=== PATIENT | male | born 1955 | race African-American/Black ===

== ENCOUNTER 2021-10-25 15:18 | Emergency (ER) | payer MEDICARE ==
[2021-10-25 15:33] VITALS: BP 139/61; RESP 20; TEMP 99.6
--- NOTE | 2021-10-25 15:45 | ED ---
General Adult HPI - General Chief complaint: Recheck/Abnormal Lab/Rx Stated complaint: Medication Refill Time Seen by Provider: 10/25/21 15:34 Source: patient, RN notes reviewed Mode of arrival: ambulatory Limitations: no limitations - History of Present Illness Initial comments: 66-year-old male history of hypertension, CHF presenting for medication refill. Patient has no complaints. He has been out of his medications for approximately one week. The 2 medications that he requires are amlodipine and lisinopril. He does take multiple other medications but has a one-month supply of these. He contacted his primary care physician who is in [place] and they indicated that he needed to be seen before he could have refills. He is planning on esta blishing with a primary care in this area. He has no other complaints, he is requesting a refill of his lisinopril and amlodipine. - Related Data Previous Rx's Medication Instructions Recorded Cyclobenzaprine [Flexeril] 5 mg PO HS #3 tab 10/25/21 amLODIPine [Norvasc] 5 mg PO DAILY #30 tab 10/25/21 lisinopriL [Zestril] 40 mg PO DAILY #30 tablet 10/25/21 Allergies Allergy/AdvReac Type Severity Reaction Status Date / Time morphine Allergy Unknown Verified 10/25/21 15:28 Review of Systems ROS Statement: Those systems with pertinent positive or pertinent negative responses have been documented in the HPI. ROS Other: All systems not noted in ROS Statement are negative. Past Medical History Past Medical History: Hypertension Additional Past Medical History / Comment(s): hypoglycemia, hepatitis C, History of Any Multi-Drug Resistant Organisms: None Reported Past Surgical History: Bariatric Surgery Past Psychological History: No Psychological Hx Reported Smoking Status: Former smoker Past Alcohol Use History: Occasional Past Drug Use History: None Reported General Exam Limitations: no limitations General appearance: alert, in no apparent distress Head exam: Present: atraumatic, normocephalic Eye exam: Present: normal appearance, PERRL ENT exam: Present: normal exam Neck exam: Present: normal inspection. Absent: tenderness, meningismus Respiratory exam: Present: normal lung sounds bilaterally. Absent: respiratory distress, wheezes Cardiovascular Exam: Present: regular rate, normal rhythm GI/Abdominal exam: Present: soft. Absent: distended, tenderness, guarding Extremities exam: Present: normal inspection, normal capillary refill. Absent: pedal edema Neurological exam: Present: alert, oriented X3, CN II-XII intact. Absent: motor sensory deficit Psychiatric exam: Present: normal affect, normal mood Skin exam: Present: warm, dry, intact. Absent: cyanosis, diaphoretic Course Vital Signs 10/25/21 15:28 Temperature 99.6 F Pulse Rate 92 Respiratory 20 Rate Blood Pressure 139/61 O2 Sat by Pulse 99 Oximetry Medical Decision Making - Medical Decision Making 66-year-old male fell complaints, stable vitals, refilled his medications for 30 days supply including amlodipine and lisinopril. Additionally the patient is referred to multiple primary care physicians in the area helping him establish Disposition Clinical Impression: Encounter for medication refill Disposition: HOME SELF-CARE Condition: Good Instructions (If sedation given, give patient instructions): Medicine Refill (ED) Prescriptions: Cyclobenzaprine [Flexeril] 5 mg PO HS #3 tab amLODIPine [Norvasc] 5 mg PO DAILY #30 tab lisinopriL [Zestril] 40 mg PO DAILY #30 tablet Is patient prescribed a controlled substance at d/c from ED?: No Referrals: None,Stated [Primary Care Provider] - 1-2 days Pal Arriaga MD [STAFF PHYSICIAN] - 1-2 days Yara Doyle MD [REFERRING] - 1-2 days Amado Bradford [STAFF PHYSICIAN] - 1-2 days Time of Disposition: 15:42
[2021-10-25 15:56] VITALS: PULSE 74
== END 2021-10-25 16:35 | disposition home or self-care (01) ==
LOC: EC 15:18
DX: Z88.5 Allergy status to narcotic agent (principal); I10 Essential (primary) hypertension; Z76.0 Encounter for issue of repeat prescription; Z87.891 Personal history of nicotine dependence
CPT/HCPCS: 99281

== ENCOUNTER → 2022-01-04 | Outpatient (CLI) | payer MEDICARE ==
[2022-01-04 20:09] LABS: HCT 28.7 % (39.6-50.0); HGB 8.9 g/dL (13.0-17.0); Mean Platelet Volume 11.8 fL (9.5-12.2); NRBC Per 100 WBC 0 /100 WBCS (0.0-0.0); Platelet Count 203 X 10*3/uL (140-440); RDW 15.8 % (11.5-14.5); WBC 4.54 X 10*3/uL (4.50-10.00)
[2022-01-04 20:38] LABS: African American GFR (CKD) 25.2 (60.0-200.0); BUN/Creat Ratio 13.41 Ratio (12.00-20.00); Blood Urea Nitrogen 38.9 mg/dL (9.0-27.0); Calcium 8.9 mg/dL (8.7-10.3); Carbon Dioxide 20.5 mmol/L (20.0-27.5); Chloride 100 mmol/L (96-109); Chol/HDL Ratio 1.64 Ratio; Glucose 102 mg/dL (70-110); LDL Cholesterol,Calculated 49.9 mg/dL (0.0-131.0); Non-African American GFR(CKD) 21.7 (60.0-200.0); Potassium 4.3 mmol/L (3.5-5.5); Sodium 135 mmol/L (135-145); VLDL Calculation 14.08 mg/dL (5.00-40.00)
== END | disposition home or self-care (01) ==
LOC: LABWHC1 11:44
PROVIDERS: ATTEND Internal Medicine Cardiovascular Disease
DX: I50.9 Heart failure, unspecified (principal); E78.2 Mixed hyperlipidemia
CPT/HCPCS: 36415; 80048; 80061; 83880; 84443; 85027

== ENCOUNTER 2022-05-03 15:14 | Inpatient (IN) | payer MEDICARE ==
[2022-05-03 17:43] LABS: Basophils % (A) 1 %; Eosinophils # (A) 0.1 k/uL (0-0.7); Eosinophils % (A) 2 %; HCT 37.4 % (39.0-53.0); HGB 11.4 gm/dL (13.0-17.5); Lymphocytes # (A) 1.6 k/uL (1.0-4.8); Lymphocytes % (A) 33 %; MCH 27.5 pg (25.0-35.0); MCHC 30.4 g/dL (31.0-37.0); MCV 90.4 fL (80.0-100.0); Mean Platelet Volume 9.6; Monocytes # (A) 0.3 k/uL (0-1.0); Monocytes % (A) 5 %; Neutrophils # (A) 2.8 k/uL (1.3-7.7); Neutrophils % (A) 58 %; Platelet Count 197 k/uL (150-450); RBC 4.14 m/uL (4.30-5.90); RDW 15.9 % (11.5-15.5); WBC 4.8 k/uL (3.8-10.6)
[2022-05-03 18:09] LABS: Albumin 4.2 g/dL (3.5-5.0); Calcium 8.4 mg/dL (8.4-10.2); Magnesium 2.7 mg/dL (1.6-2.3); Total Bilirubin 0.1 mg/dL (0.2-1.3); Total Protein 7.4 g/dL (6.3-8.2)
[2022-05-03 18:16] LABS: Potassium 6.3 mmol/L (3.5-5.1)
[2022-05-03] MEDS ORDERED: ALBUTEROL NEB (CONC) 2.5 MG/0.5 ML INHALATION ONE (18:26)
[2022-05-03] MEDS ORDERED: INSULIN REGULAR 100 UNIT/ML VIAL (IV) IV ONE (18:26)
[2022-05-03] MEDS ORDERED: SODIUM BICARB 8.4% 50 ML SYR (1 MEQ/ML) IV ONE (18:26)
[2022-05-03] MEDS ORDERED: CALCIUM GLUCONATE IN NACL 1 GM in SALINE 1 100ML.BAG IVPB ONE (18:26)
[2022-05-03] MEDS ORDERED: DEXTROSE 50% SYRINGE 50 ML IVP ONE (18:26)
[2022-05-03] MEDS ORDERED: SODIUM CHLORIDE 0.9% 2,000 ML IV ONE (18:27)
[2022-05-03] MEDS ORDERED: NALOXONE 0.4 MG/ML 1 ML VIAL IV PRN (19:51)
--- NOTE | 2022-05-03 20:09 | ED ---
General Adult HPI - General Chief complaint: Recheck/Abnormal Lab/Rx Stated complaint: Abnormal Labs, Dr Abril Naylor sent pt in Time Seen by Provider: 05/03/22 18:26 Source: patient Mode of arrival: ambulatory Limitations: no limitations - History of Present Illness Initial comments: Darius is a pleasant 66yo M with PMH of CHF and CKD. Patient went to Dr Naylor's office today to establish care, he was told that his labs were abnormal and he was told to come to the hospital. Patient states that his potassium was high. He denies any complaints or symptoms. Has been feeling well. - Related Data Home Medications Medication Instructions Recorded Confirmed Atorvastatin [Lipitor] 40 mg PO HS 05/03/22 05/03/22 Cholecalciferol [Vitamin D3 (125 125 mcg PO DAILY 05/03/22 05/03/22 Mcg = 5000 Iu)] Cyanocobalamin (Vitamin B-12) 1,000 mcg PO DAILY 05/03/22 05/03/22 [Vitamin B-12] Ferrous Sulfate [Feosol] 325 mg PO DAILY 05/03/22 05/03/22 Furosemide [Lasix] 40 mg PO DAILY 05/03/22 05/03/22 Loratadine [Claritin] 10 mg PO DAILY 05/03/22 05/03/22 Melatonin [Melatonin ER] 10 mg PO HS 05/03/22 05/03/22 Multivit-Min/FA/Lycopen/Lutein 1 tab PO DAILY 05/03/22 05/03/22 [Centrum Silver Men Tablet] carvediloL [Coreg] 25 mg PO BID-W/MEALS 05/03/22 05/03/22 lisinopriL [Zestril] 20 mg PO DAILY 05/03/22 05/03/22 Previous Rx's Medication Instructions Recorded amLODIPine [Norvasc] 5 mg PO DAILY #30 tab 10/25/21 Allergies Allergy/AdvReac Type Severity Reaction Status Date / Time morphine Allergy Unknown Verified 05/03/22 19:44 Review of Systems ROS Statement: Those systems with pertinent positive or pertinent negative responses have been documented in the HPI. ROS Other: All systems not noted in ROS Statement are negative. Past Medical History Past Medical History: Heart Failure, Hypertension, Renal Disease Additional Past Medical History / Comment(s): hypoglycemia, hepatitis C, History of Any Multi-Drug Resistant Organisms: None Reported Past Surgical History: Bariatric Surgery Past Psychological History: No Psychological Hx Reported Smoking Status: Former smoker Past Alcohol Use History: Occasional Past Drug Use History: None Reported General Exam - General Exam Comments Initial Comments: Physical Exam GENERAL: Patient is well-developed and well-nourished. Patient is nontoxic and well-hydrated and is in no distress. HENT: Normocephalic, Atraumatic. EYES: PERRL, EOMI PULMONARY: Unlabored respirations. CARDIOVASCULAR: RRR Warm and well perfused extremities ABDOMEN: Non-distended SKIN: No rashes or bruising : Deferred NEUROLOGIC: Alert and oriented Normal speech Normal gait MUSCULOSKELETAL: Moving all extremities with no apparent injury PSYCHIATRIC: No SI/HI Limitations: no limitations Course Vital Signs 05/03/22 05/03/22 05/03/22 16:14 19:39 20:00 Temperature 98.2 F Pulse Rate 58 L 82 90 Respiratory 20 Rate Blood Pressure 102/68 O2 Sat by Pulse 98 Oximetry EKG Findings - EKG Comments: EKG Findings:: EKG was obtained at 1724, rate is 74 rhythm is sinus, there is a leftward axis with evidence of left ventricular hypertrophy, deep T wave inversions throughout, T waves appear peaked, no evidence of acute ischemia or infarction. Medical Decision Making - Medical Decision Making Labs were obtained K elevated Repeat confirmed Hyperkalemia protocol ordered Patient to be admitted for CKD with Hyperkalemia Dr marie recommends PO Lokelma, IV Sodium Bicarb and repeat labs in 4h Gali accepts admission to [facility] - Lab Data Result diagrams: 05/03/22 17:31 05/03/22 18:49 Lab Results 05/03/22 05/03/22 05/03/22 Range/Units 17:31 17:31 18:49 WBC 4.8 (3.8-10.6) k/uL RBC 4.14 L (4.30-5.90) m/uL Hgb 11.4 L (13.0-17.5) gm/dL Hct 37.4 L (39.0-53.0) % MCV 90.4 (80.0-100.0) fL MCH 27.5 (25.0-35.0) pg MCHC 30.4 L (31.0-37.0) g/dL RDW 15.9 H (11.5-15.5) % Plt Count 197 (150-450) k/uL MPV 9.6 Neutrophils % 58 % Lymphocytes % 33 % Monocytes % 5 % Eosinophils % 2 % Basophils % 1 % Neutrophils # 2.8 (1.3-7.7) k/uL Lymphocytes # 1.6 (1.0-4.8) k/uL Monocytes # 0.3 (0-1.0) k/uL Eosinophils # 0.1 (0-0.7) k/uL Basophils # 0.0 (0-0.2) k/uL Sodium 133 L (137-145) mmol/L Potassium 6.3 H* 6.7 H* (3.5-5.1) mmol/L Chloride 112 H (98-107) mmol/L Carbon Dioxide 16 L (22-30) mmol/L Anion Gap 5 mmol/L BUN 51 H (9-20) mg/dL Creatinine 2.68 H (0.66-1.25) mg/dL Est GFR (CKD-EPI)AfAm 28 (>60 ml/min/1.73 sqM) Est GFR (CKD-EPI)NonAf 24 (>60 ml/min/1.73 sqM) Glucose 88 (74-99) mg/dL Calcium 8.4 (8.4-10.2) mg/dL Magnesium 2.7 H (1.6-2.3) mg/dL Total Bilirubin 0.1 L (0.2-1.3) mg/dL AST 77 H (17-59) U/L ALT 11 (4-49) U/L Alkaline Phosphatase 103 (38-126) U/L Total Protein 7.4 (6.3-8.2) g/dL Albumin 4.2 (3.5-5.0) g/dL Disposition Clinical Impression: Hyperkalemia, CKD (chronic kidney disease), CHF (congestive heart failure) Disposition: ADMITTED IP TO THIS HOSP Condition: Serious Is patient prescribed a controlled substance at d/c from ED?: No
[2022-05-03] MEDS ORDERED: SODIUM ZIRCONIUM CYCLOSILICATE 10 GM PACKET PO ONE (20:30)
[2022-05-03] MEDS ORDERED: DEXTROSE 5% IN WATER 1,000 ML with SODIUM BICARB (1 MEQ/ML) 150 ML IV SCH (20:45)
[2022-05-04 08:39] LABS: Calcium 8.2 mg/dL (8.4-10.2); Potassium 4.9 mmol/L (3.5-5.1)
[2022-05-04 10:16] VITALS: RESP 18
--- NOTE | 2022-05-04 11:53 | P.NPCON ---
History of Present Illness - Reason for Consult hyperkalemia - History of Present Illness Patient is a 66-year-old male with history of chronic kidney disease NKF stage IV with previous creatinine around 1.8 mg/dL in January 2022. Patient also has a history of hyperkalemia and he was sent in from our office due to abnormal labs. Potassium was elevated at 6.7 mg/L. Patient was also mildly acidotic and was placed on bicarb drip. Patient admits to increased intake of potassium-containing foods recently. No history of GI bleed recently no history of significant constipation. Patient was maintained on small dose of loop diuretics at home. Next He received low-calorie mouth and IV treatment for the hyperkalemia. Line serum potassium is at 4.9 today. Serum creatinine improved from 2.6-2.0 g/dL. Patient denies any difficulty in passing urine. Review of Systems As per HPI other systems negative Past Medical History Past Medical History: Heart Failure, Hypertension, Renal Disease Additional Past Medical History / Comment(s): hypoglycemia, hepatitis C, History of Any Multi-Drug Resistant Organisms: None Reported Past Surgical History: Bariatric Surgery Past Psychological History: No Psychological Hx Reported Smoking Status: Former smoker Past Alcohol Use History: Occasional Past Drug Use History: None Reported Medications and Allergies Home Medications Medication Instructions Recorded Confirmed Type amLODIPine [Norvasc] 5 mg PO DAILY #30 tab 10/25/21 05/03/22 Rx Atorvastatin [Lipitor] 40 mg PO HS 05/03/22 05/03/22 History Cholecalciferol [Vitamin D3 (125 125 mcg PO DAILY 05/03/22 05/03/22 History Mcg = 5000 Iu)] Cyanocobalamin (Vitamin B-12) 1,000 mcg PO DAILY 05/03/22 05/03/22 History [Vitamin B-12] Ferrous Sulfate [Feosol] 325 mg PO DAILY 05/03/22 05/03/22 History Furosemide [Lasix] 40 mg PO DAILY 05/03/22 05/03/22 History Loratadine [Claritin] 10 mg PO DAILY 05/03/22 05/03/22 History Melatonin [Melatonin ER] 10 mg PO HS 05/03/22 05/03/22 History Multivit-Min/FA/Lycopen/Lutein 1 tab PO DAILY 05/03/22 05/03/22 History [Centrum Silver Men Tablet] carvediloL [Coreg] 25 mg PO BID-W/MEALS 05/03/22 05/03/22 History Allergies Allergy/AdvReac Type Severity Reaction Status Date / Time morphine Allergy Unknown Verified 05/03/22 19:44 Physical Exam Vitals: Vital Signs Temp Pulse Pulse Resp BP BP Pulse Ox 05/04/22 10:51 96 18 05/04/22 10:11 98.6 F 96 18 116/72 98 05/04/22 04:05 98.1 F 90 16 112/69 100 05/03/22 22:42 71 18 118/75 98 05/03/22 20:30 82 18 120/69 98 05/03/22 20:00 96 18 110/69 05/03/22 19:39 82 05/03/22 19:30 85 17 110/69 97 05/03/22 16:14 98.2 F 58 L 20 102/68 98 Intake and Output 05/03/22 05/04/22 05/04/22 22:59 06:59 14:59 Other: Weight 77.111 kg Awake, comfortable, not in any acute distress Alert oriented 3 Examination of the heart S1 and S2 Examination lungs I lateral breath sounds are heard Abdomen is soft nontender Examination of the lower extremities shows no evidence of edema BLAST SETTER exam grossly intact Results - Lab Results Most recent lab results Calcium 8.2 mg/dL (8.4-10.2) L 05/04/22 08:03 Magnesium 2.7 mg/dL (1.6-2.3) H 05/03/22 17:31 05/03/22 17:31 05/04/22 08:03 Assessment and Plan Assessment: 1. Acute kidney injury, prerenal rule out urine retention. Renal function improved with IV hydration. I do not see KIM inhibitor's on his med list he may have been on it as outpatient we will continue to hold off on the KIM inhibitor's for now. 2. Hyperkalemia associated with acute kidney injury as well as increased intake of potassium-containing foods. This is currently improved. Rule out urine retention 3. Metabolic acidosis associated with acute kidney injury. Currently improved 4. Chronic kidney disease NKF stage IV secondary to nephrosclerosis most l ikely. I do not see a UA here. Patient has been evaluated as outpatient. We will check are office record for UA and ultrasound. 5. Hypertension currently stable to continue with Coreg and Norvasc and continue to hold off on KIM inhibitor's for now Plan: Check bladder scan and rule out urine retention. He will be given a handout for low potassium diet. Continue off of KIM inhibitor's Follow-up in the office in 1 week's time next Patient can be discharged from nephrology standpoint
[2022-05-04 13:03] VITALS: BP 115/70; PULSE 85; TEMP 98
--- NOTE | 2022-05-04 15:45 | P.HPIM ---
History of Present Illness H&P Date: 05/04/22 This is a pleasant 66-year-old male a patient of Dr. Arteaga with a medical history significant for heart failure, hypertension. He was recently diagnosed with chronic kidney disease and has been following with Dr. Naylor in the office has just established care. Outpatient labs showing elevated potassium is instructed to come to the . Upon arrival labs were drawn showing a potassium level of 6.7, he did receive cocktail including calcium gluconate, insulin, and bicarb. Potassium has improved down to 4.9. Additionally patient was started on a bicarb drip which ran overnight at 70 mL's per hour. Patient also admits to smoking 2-3 cigarettes per day, previously had quit for the last 6 years. Recently started again last couple months. He does follow with cardiology outpatient and he is unsure of the name but states that he had a workup a couple months ago which included an echocardiogram. States he was diagnosed with heart failure 2 years ago. He has been on lisinopril outpatient which is now discontinued. On discharge he will continue on carvedilol 25 mg twice a day, Norvasc 5 mg daily has been added, Lasix 40 mg daily and he will also discharged on sodium bicarbonate tablets 650 mg daily. Patient seen in consultation by nephrology. Additional labs showing a sodium level of 133 on admission, potassium 6.3, chloride 112, CO2 16, BUN 51, creatinine 2.68, magnesium 2.7, AST 77. REVIEW OF SYSTEMS: CONSTITUTIONAL: No fever, no malaise, no fatigue. HEENT: No recent visual problems or hearing problems. Denied any sore throat. CARDIOVASCULAR: No chest pain, orthopnea, PND, no palpitations, no syncope. PULMONARY: No shortness of breath, no cough, no hemoptysis. GASTROINTESTINAL: No diarrhea, no nausea, no vomiting, no abdominal pain. NEUROLOGICAL: No headaches, no weakness, no numbness. HEMATOLOGICAL: Denies any bleeding or petechiae. GENITOURINARY: Denies any burning micturition, frequency, or urgency. MUSCULOSKELETAL/RHEUMATOLOGICAL: Denies any joint pain, swelling, or any muscle pain. ENDOCRINE: Denies any polyuria or polydipsia. The rest of the 14-point review of systems is negative. PHYSICAL EXAMINATION: GENERAL: The patient is alert and oriented x3, not in any acute distress. Well developed, well nourished. HEENT: Pupils are round and equally reacting to light. EOMI. No scleral icterus. No conjunctival pallor. Normocephalic, atraumatic. No pharyngeal erythema. No thyromegaly. CARDIOVASCULAR: S1 and S2 present. No murmurs, rubs, or gallops. PULMONARY: Chest is clear to auscultation, no wheezing or crackles. ABDOMEN: Soft, nontender, nondistended, normoactive bowel sounds. No palpable organomegaly. MUSCULOSKELETAL: No joint swelling or deformity. EXTREMITIES: No cyanosis, clubbing, or pedal edema. NEUROLOGICAL: Gross neurological examination did not reveal any focal deficits. SKIN: No rashes. Assessment and plan Assessment Acute kidney injury, prerenal. Patient is not retaining urine bladder scan has been completed. Patient was hydrated overnight and kidney function improved down to 2.0 from 2.6. Hyperkalemia with lisinopril outpatient with newly diagnosis of chronic kidney disease, he is instructed to follow low potassium diet outpatient. Non-anion gap metabolic acidosis associated with chronic kidney disease Mild hyponatremia possibly hypovolemic is improved with hydration Patient states history of iron deficiency anemia and is maintained on oral iron outpatient History of heart failure unclear whether systolic or diastolic as echocardiogram report is not available History hypertension patient is normotensive History hepatitis C History of hypoglycemia Daily tobacco use counseled on cessation GI prophylaxis DVT prophylaxis Full code Plan Bladder scan has been completed ruling out urinary retention Patient evaluated by nephrology who is recommending low potassium diet outpatient and patient is started on oral sodium bicarbon Lisinopril discontinued on discharge Patient is educated on low potassium diet Patient will be discharged and follow up with nephrology in 1 week Repeat labs in 2-3 days outpatient The impression and plan of care has been dictated by Gali Malhotra Nurse Practitioner as directed. Dr. Cherry MD I have performed a history and physical examination and medical decision making of this patient, discussed the same with the dictator, and agree with the dictators assessment and plan as written, documented as a scribe. Based on total visit time, I have performed more than 50% of this visit. Past Medical History Past Medical History: Heart Failure, Hypertension, Renal Disease Additional Past Medical History / Comment(s): hypoglycemia, hepatitis C, History of Any Multi-Drug Resistant Organisms: None Reported Past Surgical History: Bariatric Surgery Past Psychological History: No Psychological Hx Reported Smoking Status: Former smoker Past Alcohol Use History: Occasional Past Drug Use History: None Reported Medications and Allergies Home Medications Medication Instructions Recorded Confirmed Type amLODIPine [Norvasc] 5 mg PO DAILY #30 tab 10/25/21 05/03/22 Rx Atorvastatin [Lipitor] 40 mg PO HS 05/03/22 05/03/22 History Cholecalciferol [Vitamin D3 (125 125 mcg PO DAILY 05/03/22 05/03/22 History Mcg = 5000 Iu)] Cyanocobalamin (Vitamin B-12) 1,000 mcg PO DAILY 05/03/22 05/03/22 History [Vitamin B-12] Ferrous Sulfate [Iron (65 MG 325 mg PO DAILY 05/03/22 05/03/22 History Elemental)] Furosemide [Lasix] 40 mg PO DAILY 05/03/22 05/03/22 History Loratadine [Claritin] 10 mg PO DAILY 05/03/22 05/03/22 History Melatonin [Melatonin ER] 10 mg PO HS 05/03/22 05/03/22 History Multivit-Min/FA/Lycopen/Lutein 1 tab PO DAILY 05/03/22 05/03/22 History [Centrum Silver Men Tablet] carvediloL [Coreg] 25 mg PO BID-W/MEALS 05/03/22 05/03/22 History Sodium Bicarbonate Tab 650 mg PO DAILY #30 tab 05/04/22 Rx Allergies Allergy/AdvReac Type Severity Reaction Status Date / Time morphine Allergy Unknown Verified 05/03/22 19:44 Physical Exam Vitals: Vital Signs Temp Pulse Pulse Resp BP BP Pulse Ox 05/04/22 10:51 96 18 05/04/22 10:11 98.6 F 96 18 116/72 98 05/04/22 04:05 98.1 F 90 16 112/69 100 05/03/22 22:42 71 18 118/75 98 05/03/22 20:30 82 18 120/69 98 05/03/22 20:00 96 18 110/69 05/03/22 19:39 82 05/03/22 19:30 85 17 110/69 97 05/03/22 16:14 98.2 F 58 L 20 102/68 98 Intake and Output 05/03/22 05/04/22 05/04/22 22:59 06:59 14:59 Other: Weight 77.111 kg Results CBC & Chem 7: 05/03/22 17:31 05/04/22 08:03 Labs: Abnormal Lab Results - Last 24 Hours (Table) 05/03/22 05/03/22 05/03/22 Range/Units 17:31 17:31 18:49 RBC 4.14 L (4.30-5.90) m/uL Hgb 11.4 L (13.0-17.5) gm/dL Hct 37.4 L (39.0-53.0) % MCHC 30.4 L (31.0-37.0) g/dL RDW 15.9 H (11.5-15.5) % Sodium 133 L (137-145) mmol/L Potassium 6.3 H* 6.7 H* (3.5-5.1) mmol/L Chloride 112 H (98-107) mmol/L Carbon Dioxide 16 L (22-30) mmol/L BUN 51 H (9-20) mg/dL Creatinine 2.68 H (0.66-1.25) mg/dL Calcium (8.4-10.2) mg/dL Magnesium 2.7 H (1.6-2.3) mg/dL Total Bilirubin 0.1 L (0.2-1.3) mg/dL AST 77 H (17-59) U/L 05/04/22 Range/Units 08:03 RBC (4.30-5.90) m/uL Hgb (13.0-17.5) gm/dL Hct (39.0-53.0) % MCHC (31.0-37.0) g/dL RDW (11.5-15.5) % Sodium 135 L (137-145) mmol/L Potassium (3.5-5.1) mmol/L Chloride 112 H (98-107) mmol/L Carbon Dioxide 20 L (22-30) mmol/L BUN 42 H (9-20) mg/dL Creatinine 2.09 H (0.66-1.25) mg/dL Calcium 8.2 L (8.4-10.2) mg/dL Magnesium (1.6-2.3) mg/dL Total Bilirubin (0.2-1.3) mg/dL AST (17-59) U/L Assessment and Plan Time with Patient: Less than 30
--- NOTE | 2022-05-04 15:48 | P.DS ---
Providers Date of admission: 05/03/22 19:51 Attending physician: Doug Wiggins Consults: 05/03/22 19:51 Consult Physician Stat Consulting Provider: Akosua Phan Consult Reason/Comments: CKD, Hyperkalemia Do you want consulting provider notified?: Already Contacted Primary care physician: Yanira Livingston [facility] Course: Acute kidney injury, prerenal. Patient was hydrated overnight and kidney function improved down to 2.0 from 2.6. Hyperkalemia with lisinopril outpatient with newly diagnosis of chronic kidney disease, he is instructed to follow low potassium diet outpatient. Non-anion gap metabolic acidosis associated with chronic kidney disease Mild hyponatremia possibly hypovolemic is improved with hydration Patient states history of iron deficiency anemia and is maintained on oral iron outpatient History of heart failure unclear whether systolic or diastolic as echocardiogram report is not available History hypertension patient is normotensive History hepatitis C History of hypoglycemia Daily tobacco use counseled on cessation Full Code Discharge disposition Patient is stable for discharge home to follow-up with his PCP 1-2 days, recommend follow with nephrology 1 week and repeat labs in 3 days. Patient is given instructions on low potassium diet. Hospital course This is a pleasant 66-year-old male with history significant for hypertension, heart failure, recent diagnosis of chronic kidney disease. He presents to the hospital elevated potassium is 6.3 which also went up to 6.7. He follows with Dr Naylor outpatient has recently established care. He was also on lisinopril ou tpatient. He denies chest pain, denies shortness of breath. Denies nausea vomiting or diarrhea. He has been urinating without difficulty. Urinary retention has been ruled out. Patient was given a 1 L fluid bolus in the EC and started on IV sodium bicarbonate drip at 70 mL's per hour overnight. Potassium has improved down to 4.9 after cocktail, creatinine has also improved to 2.0. Patient was evaluated nephrology and he has been cleared for discharge. Please see medical H&P for additional information Please see medication reconciliation for list of current medications. Thank you for allowing us to participate in the care of this patient. The impression and plan of care has been dictated by Gali Malhotra Nurse Practitioner as directed. Dr. Cherry MD I have performed a history and physical examination and medical decision making of this patient, discussed the same with the dictator, and agree with the dictators assessment and plan as written, documented as a scribe. Based on total visit time, I have performed more than 50% of this visit. Patient Condition at Discharge: Good Plan - Discharge Summary New Discharge Prescriptions: New Sodium Bicarbonate Tab 650 mg PO DAILY #30 tab Continue amLODIPine [Norvasc] 5 mg PO DAILY #30 tab Melatonin [Melatonin ER] 10 mg PO HS Loratadine [Claritin] 10 mg PO DAILY Cholecalciferol [Vitamin D3 (125 Mcg = 5000 Iu)] 125 mcg PO DAILY Cyanocobalamin (Vitamin B-12) [Vitamin B-12] 1,000 mcg PO DAILY Atorvastatin [Lipitor] 40 mg PO HS Multivit-Min/FA/Lycopen/Lutein [Centrum Silver Men Tablet] 1 tab PO DAILY Furosemide [Lasix] 40 mg PO DAILY Ferrous Sulfate [Iron (65 MG Elemental)] 325 mg PO DAILY carvediloL [Coreg] 25 mg PO BID-W/MEALS Discontinued lisinopriL [Zestril] 20 mg PO DAILY Discharge Medication List amLODIPine [Norvasc] 5 mg PO DAILY #30 tab 10/25/21 [Rx] Atorvastatin [Lipitor] 40 mg PO HS 05/03/22 [History] Cholecalciferol [Vitamin D3 (125 Mcg = 5000 Iu)] 125 mcg PO DAILY 05/03/22 [History] Cyanocobalamin (Vitamin B-12) [Vitamin B-12] 1,000 mcg PO DAILY 05/03/22 [History] Ferrous Sulfate [Iron (65 MG Elemental)] 325 mg PO DAILY 05/03/22 [History] Furosemide [Lasix] 40 mg PO DAILY 05/03/22 [History] Loratadine [Claritin] 10 mg PO DAILY 05/03/22 [History] Melatonin [Melatonin ER] 10 mg PO HS 05/03/22 [History] Multivit-Min/FA/Lycopen/Lutein [Centrum Silver Men Tablet] 1 tab PO DAILY 05/03/22 [History] carvediloL [Coreg] 25 mg PO BID-W/MEALS 05/03/22 [History] Sodium Bicarbonate Tab 650 mg PO DAILY #30 tab 05/04/22 [Rx] Follow up Appointment(s)/Referral(s): Yara Doyle MD [Primary Care Provider] - 1-2 days Arnulfo Naylor DO [STAFF PHYSICIAN] - 05/14/22 9:00 am Ambulatory/Diagnostic Orders: Basic Metabolic Panel [LAB.AMB] Time Frame: 3 Days, Location: None Selected Patient Instructions/Handouts: Potassium Content of Foods List (DC), Chronic Kidney Disease Diet (DC) Activity/Diet/Wound Care/Special Instructions: Discontinue lisinopril Repeat labs in 2-3 days outpatient Follow up with Dr. Naylor in 1 week. Follow low potassium diet. Information has been provided on diet for chronic kidney disease. Information has also been provided on potassium content in food, which should be limited. Discharge Disposition: HOME SELF-CARE
== END 2022-05-04 13:05 | disposition home or self-care (01) | DRG 641 ==
LOC: EC 15:14 → 3SCARD 19:51
PROVIDERS: ADMIT Hospitalist; ATTEND Hospitalist
DX: E87.5 Hyperkalemia (principal); N17.9 Acute kidney failure, unspecified; I13.0 Hypertensive heart and chronic kidney disease with heart failure and stage 1 through stage 4 chronic kidney disease, or unspecified chronic kidney disease; N18.4 Chronic kidney disease, stage 4 (severe); E87.1 Hypo-osmolality and hyponatremia; E87.2 Acidosis; I50.9 Heart failure, unspecified; B18.2 Chronic viral hepatitis C; D50.9 Iron deficiency anemia, unspecified; Z79.899 Other long term (current) drug therapy; Z71.6 Tobacco abuse counseling; Z88.5 Allergy status to narcotic agent
CPT/HCPCS: 36415; 51798; 80048; 80053; 83735; 84132; 85025; 93005; 94640; 96365; 96366; 96375; 99285

== ENCOUNTER → 2022-05-10 | Outpatient (CLI) | payer MEDICARE ==
--- NOTE | 2022-05-10 12:35 | US ---
EXAMINATION TYPE: US kidneys/renal and bladder DATE OF EXAM: 05/10/2022 COMPARISON: NONE CLINICAL HISTORY: N18.32 CKD STAGE 3. EXAM MEASUREMENTS: Right Kidney: 10.1 x 4.8 x 4.8 cm Left Kidney: 10.4 x 5.1 x 5.0 cm Right Kidney: small 0.7cm cyst lateral inferior pole Left Kidney: 1.1cm cyst mid pole, 2.6cm cyst inferior pole Bladder: mildly irregular wall Bilateral Jets seen: no IMPRESSION: 1. Small bilateral renal cysts.
== END | disposition home or self-care (01) ==
LOC: RADUSWWP 09:49
PROVIDERS: ATTEND Internal Medicine
DX: N18.32 Chronic kidney disease, stage 3b (principal)
CPT/HCPCS: 76770

== ENCOUNTER → 2022-08-13 | Outpatient (CLI) | payer MEDICARE ==
[2022-08-13 11:32] LABS: Appearance,Urine Clear (Clear); Bilirubin,Urine Negative (Negative); Blood,Urine Negative (Negative); Color,Urine Colorless; Glucose,Urine (UA) Negative (Negative); Ketones,Urine Negative (Negative); Leukocyte Esterase,Urine Negative (Negative); Nitrite,Urine Negative (Negative); Protein,Urine Negative (Negative); Specific Gravity,Urine 1.007 (1.001-1.035); Urobilinogen,Urine <2.0 mg/dL (<2.0)
[2022-08-13 15:39] LABS: Basophils # (A) 0.04 X 10*3/uL (0.00-0.10); Basophils % (A) 1.2 %; Eosinophils % (A) 2.9 %; HCT 37.1 % (39.6-50.0); HGB 12.6 g/dL (13.0-17.0); Immature Grans, Automated 0.3 %; Lymphocytes # (A) 1.61 X 10*3/uL (0.90-5.00); Lymphocytes % (A) 46.8 %; MCH 29.4 pg (27.0-32.0); MCV 86.7 fL (80.0-97.0); Mean Platelet Volume 11.7 fL (9.5-12.2); Monocytes # (A) 0.35 X 10*3/uL (0.20-1.00); Monocytes % (A) 10.2 %; NRBC Per 100 WBC 0 /100 WBCS (0.0-0.0); Neutrophils # (A) 1.33 X 10*3/uL (1.80-7.70); Neutrophils % (A) 38.6 %; Platelet Count 196 X 10*3/uL (140-440); RBC 4.28 X 10*6/uL (4.40-5.60); WBC 3.44 X 10*3/uL (4.50-10.00)
[2022-08-13 16:24] LABS: Hepatitis A Antibody IgM Nonreactive (Nonreactive); Hepatitis B Core IgM Nonreactive (Nonreactive); Hepatitis B Surface Antigen Nonreactive (Nonreactive); Hepatitis C IgG Antibody Reactive (Nonreactive)
[2022-08-13 17:19] LABS: % Iron Saturation 38.71 (15.00-50.00); African American GFR (CKD) 40.4 (60.0-200.0); Albumin/Globulin Ratio 1.74 (1.60-3.17); Anion Gap 14.7 mmol/L (10.00-18.00); BUN/Creat Ratio 18.97 Ratio (12.00-20.00); Calcium 8.6 mg/dL (8.7-10.3); Carbon Dioxide 21.1 mmol/L (20.0-27.5); Globulin 2.3 g/dL (1.6-3.3); Magnesium 2.2 mg/dL (1.5-2.4); Non-African American GFR(CKD) 34.8 (60.0-200.0); Potassium 4.9 mmol/L (3.5-5.5); Total Bilirubin 0.3 mg/dL (0.30-1.20); Total Protein 6.3 g/dL (6.2-8.2); Uric Acid 9.9 mg/dL (3.7-8.7)
[2022-08-13 20:59] LABS: Microalbumin Creatinine Ratio <30 mg/g Creat (0-30); Urine Creatinine 43.1 mg/dL (39.0-259.0)
== END | disposition home or self-care (01) ==
LOC: LABWHC1 09:50
PROVIDERS: ATTEND Nurse Practitioner Family
DX: N18.32 Chronic kidney disease, stage 3b (principal); D64.9 Anemia, unspecified; N39.0 Urinary tract infection, site not specified; R80.9 Proteinuria, unspecified; E55.9 Vitamin D deficiency, unspecified; M10.9 Gout, unspecified; N25.81 Secondary hyperparathyroidism of renal origin
CPT/HCPCS: 36415; 80053; 80074; 81003; 82043; 82306; 82570; 82728; 83540; 83550; 83735; 83883; 83970; 84550; 85025; 86038; 86334